=== PATIENT | female | born 1985 | race Caucasian/White ===

== ENCOUNTER 2017-12-13 08:31 | Inpatient (IN) | payer MEDICAID ==
[2017-12-13] MEDS ORDERED: LIDOCAINE 1% (MPF) 30 ML INJ INJ (13:00)
[2017-12-13] MEDS ORDERED: IBUPROFEN 600 MG TAB PO (13:00)
[2017-12-13] MEDS ORDERED: METHYLERGONOVINE 0.2 MG INJ IM (13:00)
[2017-12-13] MEDS ORDERED: BUTORPHANOL 2 MG INJ IV ×2 (13:00)
[2017-12-13] MEDS ORDERED: OXYTOCIN 30 UNITS/LR 500 ML IV ×2 (13:00)
[2017-12-13] MEDS ORDERED: MISOPROSTOL 200 MCG TAB PR (13:00)
[2017-12-13] MEDS ORDERED: CARBOPROST 250 MCG INJ IM (13:00)
[2017-12-13] MEDS: LACTATED RINGER'S 1,000 ML IV ×2 (13:17→19:34)
[2017-12-13 13:19] LABS: ADD MAN DIFF? NO
[2017-12-13 13:21] LABS: WHITE BLOOD COUNT 7.6 10^3/ul (4.8-10.8)
[2017-12-13 13:21] LABS: BASOPHILS % 0.3 % (0.0-2.0); EOSINOPHILS # 0.1 10^3/ul (0.0-0.5); EOSINOPHILS % 0.9 % (0.0-7.0); HEMATOCRIT 35.6 % (37.0-47.0); HEMOGLOBIN 12.1 g/dl (12.0-16.0); LYMPHOCYTES # 1.8 10^3/ul (0.8-2.9); LYMPHOCYTES % 23.7 % (15.0-51.0); MEAN CORPUSCULAR HEMOGLOBIN 30.3 pg (29.0-33.0); MEAN CORPUSCULAR VOLUME 89.2 fl (82.0-101.0); MEAN PLATELET VOLUME 12.9 fl (7.4-10.4); MONOCYTE # 0.6 10^3/ul (0.3-0.9); MONOCYTES % 7.8 % (0.0-11.0); PLATELET COUNT 175 10^3/UL (140-415); RED BLOOD COUNT 3.99 10^6/ul (4.20-5.40); RED CELL DISTRIBUTION WIDTH 14.1 % (11.5-14.5)
[2017-12-13 13:36] LABS: INR 0.93; PROTIME 12.5 Sec (11.9-14.9)
[2017-12-13 13:37] LABS: PARTIAL THROMBOPLASTIN TIME 28.9 Sec (25.0-35.0)
[2017-12-13 13:45] LABS: ADD UMIC YES; UR ASCORBIC ACID NEGATIVE (NEGATIVE); UR BACTERIA FEW /HPF (NONE SEEN); UR BILIRUBIN (Dip) NEGATIVE (NEGATIVE); UR BLOOD (Dip) NEGATIVE (NEGATIVE); UR CLARITY CLEAR (CLEAR); UR COLOR YELLOW (YELLOW); UR GLUCOSE (Dip) NEGATIVE (NEGATIVE); UR KETONES (Dip) NEGATIVE (NEGATIVE); UR LEUKOCYTE ESTERASE (Dip) TRACE Leu/ul (NEGATIVE); UR MUCUS FEW /HPF (NONE SEEN); UR NITRITE (Dip) NEGATIVE (NEGATIVE); UR RBC 1 /HPF (0-5); UR SPECIFIC GRAVITY (Dip) 1.013 (1.003-1.030); UR SQUAMOUS EPITHELIAL CELL FEW /HPF (FEW); UR TOTAL PROTEIN (Dip) NEGATIVE (NEGATIVE); UR UROBILINOGEN (Dip) NEGATIVE (NEGATIVE); UR WBC 8 /HPF (0-5)
[2017-12-13 14:11] LABS: HEPATITIS B SURFACE ANTIGEN NEGATIVE (NEGATIVE)
[2017-12-13 14:24] LABS: HIV 1&2 ANTIBODY NEGATIVE (NEGATIVE)
[2017-12-13 14:56] LABS: RAPID PLASMA REAGIN NONREACTIVE (NR)
[2017-12-13 17:51] LABS: AMPHETAMINE/METHAMPHETAMINE Negative (NEGATIVE); BARBITURATES Negative (NEGATIVE); BENZODIAZEPINES Negative (NEGATIVE); CANNABINOIDS Negative (NEGATIVE); COCAINE Negative (NEGATIVE); OPIATES Negative (NEGATIVE)
[2017-12-14] MEDS: LACTATED RINGER'S 1,000 ML IV ×2 (03:14→10:31)
[2017-12-14] MEDS ORDERED: ONDANSETRON 4 MG INJ (10:26)
[2017-12-14] MEDS ORDERED: CITRIC ACID/SODIUM CITRATE 15 ML CUP (10:26)
[2017-12-14] MEDS: CEFAZOLIN 2 GM/50 ML (PMX) 50 ML IVPB (10:30)
[2017-12-14] MEDS: CITRIC ACID/SODIUM CITRATE 15 ML CUP PO (10:31)
[2017-12-14] MEDS: ONDANSETRON 4 MG INJ IV ×2 (10:31→12:46)
[2017-12-14] MEDS ORDERED: METOCLOPRAMIDE 10 MG INJ (11:05)
[2017-12-14] MEDS ORDERED: morphine SULFATE/PF (10 MG/10 ML) INJ (11:05)
[2017-12-14] MEDS ORDERED: OXYTOCIN 10 UNIT INJ (11:05)
[2017-12-14] MEDS ORDERED: PHENYLephrine (100 MCG/ML) 5ML SYG (11:05)
[2017-12-14] MEDS ORDERED: FENTAnyl 50 MCG/ML VIAL (11:05)
[2017-12-14] MEDS ORDERED: HYDROmorphONE (0.2 MG/ML) 10ML SYG IV ×3 (12:00)
[2017-12-14] MEDS ORDERED: morphine 2 MG INJ IV (12:00)
[2017-12-14] MEDS ORDERED: FENTAnyl 50 MCG/ML VIAL IV ×3 (12:00)
[2017-12-14] MEDS ORDERED: DIPHENHYDRAMINE 50 MG INJ IV ×2 (12:00)
[2017-12-14] MEDS ORDERED: MEPERIDINE 25 MG INJ IV (12:00)
[2017-12-14] MEDS ORDERED: ALBUTEROL 0.083% (NEB) 2.5 MG/3 ML AMP HHN (12:00)
[2017-12-14] MEDS ORDERED: IPRATROPIUM (NEB) 0.5 MG/2.5 ML AMP HHN (12:00)
[2017-12-14] MEDS ORDERED: NALBUPHINE HCL (10 MG/1 ML) INJ IV (12:00)
[2017-12-14] MEDS ORDERED: hydrALAzine 20 MG INJ IV (12:00)
[2017-12-14] MEDS ORDERED: LABETALOL HCL 20MG INJ IV (12:00)
[2017-12-14] MEDS ORDERED: ONDANSETRON 4 MG INJ IV (12:00)
[2017-12-14] MEDS ORDERED: NALOXONE (0.4 MG/ML) INJ IV (12:00)
[2017-12-14] MEDS ORDERED: morphine 4 MG/ML VIAL IV (12:00)
[2017-12-14] MEDS ORDERED: OXYCODONE/ACETAMINOPHEN (5/325) TAB PO ×3 (12:00→15:30)
[2017-12-14] MEDS ORDERED: TRIMETHOBENZAMIDE 100 MG/ML VIAL IM ×2 (12:00)
[2017-12-14] MEDS ORDERED: EPHEDrine SULFATE 50 MG/5 ML SYG IV (12:00)
[2017-12-14] MEDS: OXYTOCIN 30 UNITS/LR 500 ML IV ×3 (12:34→22:48)
[2017-12-14] MEDS ORDERED: CARBOPROST 250 MCG INJ IM (15:30)
[2017-12-14] MEDS ORDERED: METHYLERGONOVINE 0.2 MG INJ IM (15:30)
[2017-12-14] MEDS ORDERED: MISOPROSTOL 200 MCG TAB PR (15:30)
[2017-12-14] MEDS ORDERED: HYDROCODONE/APAP (5/325) TAB PO (15:30)
[2017-12-14] MEDS ORDERED: OXYTOCIN 30 UNITS/LR 500 ML IV (15:30)
[2017-12-14] MEDS: CEFAZOLIN 1 GM/50 ML (PMX) 50 ML IVPB (16:12)
[2017-12-14] MEDS: IBUPROFEN 600 MG TAB PO (18:00)
[2017-12-14] MEDS: SENNA/DOCUSATE NA (8.6MG/50MG) TAB PO (21:25)
[2017-12-15] MEDS: OXYTOCIN 30 UNITS/LR 500 ML IV ×4 (03:24→11:24)
[2017-12-15] MEDS: KETOROLAC 30 MG INJ IV ×2 (04:15→11:05)
[2017-12-15] MEDS: IBUPROFEN 600 MG TAB PO ×4 (06:00→17:44)
[2017-12-15 08:27] LABS: ADD MAN DIFF? NO
[2017-12-15 08:37] LABS: BASOPHILS % 0.2 % (0.0-2.0); EOSINOPHILS % 0.3 % (0.0-7.0); HEMATOCRIT 27.6 % (37.0-47.0); HEMOGLOBIN 9.3 g/dl (12.0-16.0); LYMPHOCYTES # 1.4 10^3/ul (0.8-2.9); LYMPHOCYTES % 12.7 % (15.0-51.0); MEAN CORPUSCULAR HEMOGLOBIN 30.2 pg (29.0-33.0); MEAN CORPUSCULAR HGB CONC 33.7 g/dl (32.0-37.0); MEAN CORPUSCULAR VOLUME 89.6 fl (82.0-101.0); MEAN PLATELET VOLUME 12.5 fl (7.4-10.4); MONOCYTE # 0.8 10^3/ul (0.3-0.9); MONOCYTES % 7.4 % (0.0-11.0); NEUTROPHIL # 8.7 10^3/ul (1.6-7.5); NEUTROPHILS % 78.9 % (39.0-77.0); PLATELET COUNT 129 10^3/UL (140-415); RED BLOOD COUNT 3.08 10^6/ul (4.20-5.40); RED CELL DISTRIBUTION WIDTH 14.3 % (11.5-14.5)
[2017-12-15] MEDS: SENNA/DOCUSATE NA (8.6MG/50MG) TAB PO ×2 (09:44→22:06)
[2017-12-15] MEDS: LANOLIN 7 GM TUBE TOP (09:44)
[2017-12-15] MEDS: OXYCODONE/ACETAMINOPHEN (5/325) TAB PO ×2 (16:04→22:06)
[2017-12-16] MEDS: IBUPROFEN 600 MG TAB PO ×4 (00:09→17:33)
[2017-12-16] MEDS: SENNA/DOCUSATE NA (8.6MG/50MG) TAB PO ×2 (08:47→20:08)
[2017-12-16] MEDS: HYDROCODONE/APAP (5/325) TAB PO (08:47)
[2017-12-16 11:57] LABS: RUBELLA ANTIBODY - IGG 5.48 index; RUBELLA ANTIBODY - IGM <20.00 AU/mL
[2017-12-16] MEDS: NA PHOSPHATE/BIPHOS 133 ML ENEMA PR (12:25)
[2017-12-16] MEDS: OXYCODONE/ACETAMINOPHEN (5/325) TAB PO (20:09)
[2017-12-17] MEDS: IBUPROFEN 600 MG TAB PO ×3 (00:12→12:00)
[2017-12-17] MEDS: LANOLIN 7 GM TUBE TOP ×2 (00:52→13:46)
[2017-12-17] MEDS: OXYCODONE/ACETAMINOPHEN (5/325) TAB PO (07:42)
[2017-12-17] MEDS: SENNA/DOCUSATE NA (8.6MG/50MG) TAB PO (09:31)
[2017-12-17] MEDS: DIPHTH/TET/ACEL PERTUSS (ADULT) 0.5 ML VIAL IM* (09:47)
== END 2017-12-17 15:26 | disposition home or self-care (01) | DRG 766 ==
LOC: OBT 08:31 → L-D 12-14 10:36 → SDS 08:31 → L-D 12-14 12:25 → PP1 12-14 15:38 → L-D 08:31 → OBT 12:00 → L-D 12:28
PROC: 10D00Z1 Extraction of Products of Conception, Low, Open Approach (ICD-10-PCS; principal; 2017-12-14 10:45)
PROC: 3E033VJ Introduction of Other Hormone into Peripheral Vein, Percutaneous Approach (ICD-10-PCS; 2017-12-14 10:45)
DX: O48.0 Post-term pregnancy (principal); O62.0 Primary inadequate contractions; Z3A.41 41 weeks gestation of pregnancy; Z37.0 Single live birth
CPT/HCPCS: 76815; 76818; 80307; 81001; 85025; 85610; 85730; 86592; 86703; 86762; 86900; 86901; 87086; 87340; 87591; 90715; 94760; 99464